=== PATIENT | female | born 1935 | race Caucasian/White ===

== ENCOUNTER → 2017-04-19 | Outpatient (CLI) | payer MEDICARE ==
--- NOTE | 2017-04-19 17:49 | Diagnostic Imaging Report ---
MONALISA DUBOIS [facility] [address] [facility].[address] [address] Report Submission Date: Apr 19, 2017 5:11:22 PM CDT Patient Study Name: STALIN DARDEN Date: Apr 19, 2017 3:56:34 PM CDT Modality Type: CR Gender: F Description: PELVIS : 31 Institution: [facility] Physician: MONALISA DUBOIS Pelvis Clinical history pain Technique AP supine pelvis Findings: Degenerative as is present the symphysis pubis sacroiliac joints and hips. There some sclerosis of the right ischium. Heavy aortoiliac vascular calcification is present. Spurs arise from the lateral hips and iliac crests sclerosis is present in the iliac wings bilaterally. There is lumbar spondylosis. Impression: No acute pelvic pathology. Multifocal degenerative arthritis Heavy aortoiliac vascular calcification. Nonspecific sclerosis of the right ischium and iliac wings. Consider bone scan followup Electronically signed on Apr 19, 2017 5:11:22 PM CDT by: Pilo RODRIGUEZ
--- NOTE | 2017-04-19 17:50 | Diagnostic Imaging Report ---
MONALISA DUBOIS [facility] [address] [facility].[address] [address] Report Submission Date: Apr 19, 2017 5:13:12 PM CDT Patient Study Name: STALIN DARDEN Date: Apr 19, 2017 4:02:20 PM CDT Modality Type: CR Gender: F Description: SPINE : 31 Institution: [facility] Physician: MONALISA DUBOIS Lumbar spine 3 views Clinical history pain Technique AP lateral cone down Findings: There is multilevel disc space narrowing and spur formation. Heavy aortoiliac vascular calcification is present. There is posterior facet joint degenerative arthritis throughout the lumbar spine greatest at L4/L5 and L5/S1. No bone destruction or pedicle destruction is seen. Impression: Lumbar spondylosis Aortoiliac vascular calcification No acute lumbar spine pathology Electronically signed on Apr 19, 2017 5:13:12 PM CDT by: Pilo RODRIGUEZ
== END ==
LOC: RAD 15:37
PROVIDERS: ATTEND Family Medicine
DX: T14.90XA Injury, unspecified, initial encounter (principal); W19.XXXA Unspecified fall, initial encounter
CPT/HCPCS: 72100; 72170

== ENCOUNTER 2018-01-02 10:17 | Outpatient (CLI) | payer MEDICARE ==
--- NOTE | 2018-01-02 17:15 | Diagnostic Imaging Report ---
MATT PERES [facility] [id number] [facility] [address] [place], [place]. [address] Report Submission Date: Jan 02, 2018 12:58:40 PM CDT Patient Study Name: STALIN DARDEN Date: Jan 02, 2018 12:13:31 PM CDT Modality Type: CT\SR Gender: F Description: CT BRAIN W/O CONTRAST : 31 Institution: [facility] Physician: MATT PERES Examination: CT head without contrast History: HEADACHES AND DIZZINESS POST FALL AND HIT HEAD 2 MONTHS AGO (Hx) / ITS.REASON DIZZINESS, HEAD INJURY (DICOM Hx) Comparison exam: None available Technique: Noncontrast head CT protocol. Findings: Ventricles and sulci are prominent. Cerebrocerebellar parenchyma demonstrates periventricular low attenuation consistent with small vessel disease. No evidence for parenchymal hemorrhage. No evidence for mass or mass effect. No midline shift. No extra axial fluid collections. Partial visualization of the paranasal sinuses, mastoid air cells, orbits, skull and scalp without gross irregularity. Streak artifact from dental hardware. Impression: Age related changes. No acute parenchymal process. No hemorrhage. Electronically signed on Jan 02, 2018 12:58:40 PM CDT by: Edgar RODRIGUEZ
== END 2018-01-02 10:19 ==
LOC: RAD 10:17
PROVIDERS: ATTEND Family Medicine
DX: R42 Dizziness and giddiness (principal); S09.90XD Unspecified injury of head, subsequent encounter; Y92.9 Unspecified place or not applicable; Y93.9 Activity, unspecified; Y99.9 Unspecified external cause status
CPT/HCPCS: 70450